=== PATIENT | male | born 1960 | race Caucasian/White ===

== ENCOUNTER → 2017-01-20 | Outpatient (CLI) | payer MEDICARE | LOC: LAB 13:46 | PROVIDERS: Internal Medicine Nephrology | DX: N18.3 Chronic kidney disease, stage 3 (moderate) (principal); E78.5 Hyperlipidemia, unspecified | CPT/HCPCS: 36415; 80053; 80061; 82043; 82570 ==

== ENCOUNTER → 2020-12-12 | Outpatient (CLI) | payer MEDICARE ==
[2020-12-13 10:14] LABS: CREATININE, URINE 71.3 mg/dL (Not Estab.)
== END ==
LOC: LAB 14:57
PROVIDERS: Internal Medicine Nephrology
DX: N18.30 Chronic kidney disease, stage 3 unspecified (principal)
CPT/HCPCS: 36415; 80053; 82043; 82570

== ENCOUNTER → 2021-04-12 | Outpatient (CLI) | payer MEDICARE ==
[2021-04-13 10:51] LABS: CREATININE, URINE 98.3 mg/dL (Not Estab.)
== END ==
LOC: LAB 12:41
PROVIDERS: Internal Medicine Nephrology
DX: E87.6 Hypokalemia (principal); E78.5 Hyperlipidemia, unspecified; N18.30 Chronic kidney disease, stage 3 unspecified
CPT/HCPCS: 36415; 80053; 80061; 82043; 82570; 83735

== ENCOUNTER → 2021-05-09 | Outpatient (CLI) | payer MEDICARE | LOC: LAB 14:33 | PROVIDERS: Internal Medicine Nephrology | DX: N18.32 Chronic kidney disease, stage 3b (principal) | CPT/HCPCS: 36415; 80053 ==

== ENCOUNTER → 2021-07-17 | Outpatient (CLI) | payer MEDICARE ==
[2021-07-18 11:14] LABS: CREATININE, URINE 91.7 mg/dL (Not Estab.)
== END ==
LOC: LAB 14:12
PROVIDERS: Internal Medicine Nephrology
DX: N18.32 Chronic kidney disease, stage 3b (principal)
CPT/HCPCS: 36415; 80053; 82043; 82570

== ENCOUNTER → 2021-08-16 | Outpatient (CLI) | payer MEDICARE | LOC: LAB 13:51 | PROVIDERS: Internal Medicine Nephrology | DX: N18.32 Chronic kidney disease, stage 3b (principal) | CPT/HCPCS: 36415; 80048 ==

== ENCOUNTER → 2021-10-21 | Outpatient (CLI) | payer MEDICARE ==
[2021-10-22 10:15] LABS: CREATININE, URINE 76.4 mg/dL (Not Estab.)
== END ==
LOC: LAB 13:29
PROVIDERS: Internal Medicine Nephrology
DX: N18.32 Chronic kidney disease, stage 3b (principal)
CPT/HCPCS: 36415; 80053; 82043; 82570

== ENCOUNTER → 2022-03-03 | Outpatient (CLI) | payer MEDICARE ==
[2022-03-04 11:17] LABS: CREATININE, URINE 56.1 mg/dL (Not Estab.)
== END ==
LOC: LAB 13:31
PROVIDERS: Internal Medicine Nephrology
DX: N18.32 Chronic kidney disease, stage 3b (principal)
CPT/HCPCS: 36415; 80053; 82043; 82570

== ENCOUNTER → 2022-06-16 | Outpatient (CLI) | payer MEDICARE ==
[2022-06-17 11:14] LABS: CREATININE, URINE 89.8 mg/dL (Not Estab.)
== END ==
LOC: LAB 14:21
PROVIDERS: Internal Medicine Nephrology
DX: Z13.29 Encounter for screening for other suspected endocrine disorder (principal); N18.32 Chronic kidney disease, stage 3b
CPT/HCPCS: 36415; 80053; 82043; 82570; 84443